=== PATIENT | male | born 1965 | race Caucasian/White ===

== ENCOUNTER 2016-11-28 11:02 | Emergency (ER) | payer OTHER ==
[2016-11-28] MEDS: ASPIRIN 325 MG TABLET PO ONE (11:38)
[2016-11-28 11:39] LABS: BASOPHILS % 0.9 (0.0-1.5); EOSINOPHILS % 1.4 % (0.0-6.8); MEAN CORPUSCULAR HEMOGLOBIN 29.2 pg (28.0-34.0); MEAN CORPUSCULAR VOLUME 87.3 fl (80.0-100.0); MONOCYTES % 3.2 % (0.0-11.0); NEUTROPHILS # 3.4 # k/uL (1.4-7.7)
[2016-11-28 11:51] LABS: eGFR (African) > 60; eGFR (Non-African) > 60
[2016-11-28] MEDS ORDERED: 0.9 % SODIUM CHLORIDE 1,000 ML IV ONE (11:53)
[2016-11-28] MEDS: 0.9 % SODIUM CHLORIDE 1,000 ML IV SCH (11:57)
[2016-11-28] MEDS: KETOROLAC TROMETHAMINE 30 MG/1ML VIAL IVP ONE (12:00)
--- NOTE | 2016-11-28 13:12 | ED Physician Documentation ---
Chest Pain - HISTORIAN Historian: patient - HPI Stated Complaint: chest pain Chief Complaint: Chest Pain Additional Information: hurts to touch left sternal border or take deep breath Onset: other (3-4 weeks) Timing: sudden onset, still present, worse Duration: sudden-onset Last known Well Date: 10/28/16 Last Known Well Time: 00:00 Context: exertion Severity: mild Quality: sharp, stabbing Front/Back of Body, Lg (Color): 1 - chest pain Chest Pain Radiation: no radiation Chest Pain Signs/Symptoms: denies: nausea, vomiting, diaphoresis, cool extremities, dizziness, dyspnea, tachypnea, tachycardia, hypotension, palpitations, weakness Worsened By: deep breaths, exertion Relieved By: rest Further Comments: no - ROS CONST: none MS/LYMPH: none GI/: none EYES/ENT: none SKIN/ENDO: none NEURO/PSYCH: none - PAST HX [place] risk factors: no pertinent history DVT/PE Risk Factors: none TAD/AAA risk factors: none Neuro deficit: none GI disease: none Lung disease: none Surgeries/Procedures: none Allergies/Adverse Reactions: Allergies Allergy/AdvReac Type Severity Reaction Status Date / Time No Known Allergies Allergy Verified 11/28/16 11:12 Home Medications: Ambulatory Orders Medication Instructions Recorded Meloxicam [Mobic] 7.5 mg PO BID #14 mg 11/28/16 - SOCIAL HX Smoking History: non-smoker Alcohol Use: none Drug Use: none - FAMILY HX Family HX: CAD over 55 - VITAL SIGNS Vital Signs: Vital Signs Temp Pulse Resp BP Pulse Ox 98.2 F 45 L 18 148/69 98 11/28/16 11:20 11/28/16 11:33 11/28/16 11:20 11/28/16 11:20 11/28/16 11:31 - REVIEWED ASSESSMENTS Nursing Assessment Reviewed: Yes Vitals Reviewed: Yes Progress - Results/Orders Results/Orders: trop, cbc, cmp, ua, cxr, rib x-ray, ekg ordered - Progress Progress: pt. given asa 325 mg p.o., toradol 30 mg ivp and 1 liter ns iv in er Critical Care Note - Critical Care Note Total Time (mins): 0 ED Results Lab/Radiology - Lab Results Lab Results: Lab Results 11/28/16 11/28/16 11/28/16 11:35 11:35 11:35 WBC 5.30 K/ul K/ul (4.00-12.00) RBC 4.65 M/ul M/ul (3.90-5.20) Hgb 13.6 g/dL g/dL (12.0-18.0) Hct 40.6 % % (37.0-53.0) MCV 87.3 fl fl (80.0-100.0) MCH 29.2 pg pg (28.0-34.0) MCHC 33.4 g/dL g/dL (30.0-36.0) RDW 13.0 % % (11.3-14.3) Plt Count 194 K/mm3 K/mm3 (130-400) Neut % (Auto) 63.5 % % (39.0-79.0) Lymph % (Auto) 29.4 % % (16.0-50.0) [place] % (Auto) 3.2 % % (0.0-11.0) Eos % (Auto) 1.4 % % (0.0-6.8) Baso % (Auto) 0.9 (0.0-1.5) Neut # 3.4 # k/uL # k/uL (1.4-7.7) Lymph # 1.6 # k/uL # k/uL (0.6-4.0) [place] # 0.2 # k/uL # k/uL (0.0-0.9) Eos # 0.1 # k/uL # k/uL (0.0-0.6) Baso # 0.0 # k/uL # k/uL (0.0-0.5) Reactive Lymphs % 1.7 % % (0.0-5.0) Reactive Lymphs # 0.1 # k/uL # k/uL (0.0-0.8) Sodium 143 mmol/L mmol/L (136-145) Potassium 3.9 mmol/L mmol/L (3.5-5.0) Chloride 108 mmol/L mmol/L (98-110) Carbon Dioxide 27 mmol/L mmol/L (20-32) BUN 28 mg/dL H mg/dL (10-26) Creatinine 1.0 mg/dL mg/dL (0.4-1.5) Estimated Creat Clear 87 Est GFR ( Amer) > 60 (60 - ) Est GFR (Non-Af Amer) > 60 (60 - ) Glucose 136 mg/dL H mg/dL (70-99) Calcium 9.8 mg/dL mg/dL (8.5-10.5) Total Bilirubin 0.6 mg/dL mg/dL (0.2-1.2) AST 24 U/L U/L (0-41) ALT 24 U/L U/L (0-45) Alkaline Phosphatase 56 U/L U/L (46-116) Troponin I < 0.03 ng/mL L ng/mL (0.03-0.06) Total Protein 7.6 g/dL g/dL (6.0-8.5) Albumin 4.5 g/dL g/dL (3.0-5.5) - Radiology Radiology Impressions: cxr/rib x-ray neg - Orders Orders: ED Orders Category Date Time Status Continuous EKG monitoring Q30M Care 11/28/16 11:33 Active Continuous Pulse Oximetry Q1H Care 11/28/16 11:[address] IV Lock 1T Care 11/28/16 11:34 Active Remove IV/Saline Lock 1T Care 11/28/16 11:31 Inactive Telemetry NOW Care 11/28/16 11:31 Inactive CHEST 1 VIEW [RAD] Routine Exams 11/28/16 Stop Req RIBS UNILATERAL W/ PA CHEST [RAD] Routine Exams 11/28/16 Ordered CBC/PLATELET/DIFF Routine Lab 11/28/16 11:35 Completed CMP Routine Lab 11/28/16 11:35 Completed TROPONIN I (cTnI) Routine Lab 11/28/16 11:35 Completed URINALYSIS Routine Lab 11/28/16 11:32 Ordered Aspirin Med 11/28/16 11:31 Discontinued 325 mg PO NOW ONE Ketorolac Tromethamine [Toradol] Med 11/28/16 11:53 Once 30 mg IVP NOW ONE NORMAL SALINE @ 1000 MLS/HR ( 1000ml) (BOLUS) Med 11/28/16 12:00 Ordered 0.9 % Sodium Chloride [Normal Saline] 1,000 ml IV .Q1H EKG WITH COMPARISON Routine Ther 11/28/16 Ordered Chest Pain Physical Exam - EXAM General Appearance: no acute distress EENT: eye inspection normal, ENT inspection normal, pharynx normal, MARIPOSA, TM's nml Neck: nml inspection, no carotid bruit Respiratory: no resp. distress, other (reproduceable pain on palpation at left sternal border) CVS: reg. rate & rhythm, no murmur, no gallop, pulses equal Abdomen: soft, no organomegaly, normal bowel sounds, no abdominal bruit, no distension, non-tender Skin: warm/dry, normal color Extremities: non-tender, normal range of motion, no evidence of injury, no edema Neuro: oriented X3, CN's nml as tested, motor nml, sensation nml, mood/affect nml, cognition normal Discharge Clincal Impression: Costochondritis Prescriptions: Meloxicam [Mobic] 7.5 mg PO BID #14 mg Referrals: Primary Doctor,No [Primary Care Provider] - 2 Days Home Medications: Ambulatory Orders Meloxicam [Mobic] 7.5 mg PO BID #14 mg 11/28/16 Comments: pt. discharged with script for meloxicam 7.5 mg 1 p.o. bid x 7 days Condition: Stable Disposition: 01 HOME, SELF-CARE Decision to Admit: NO Decision Time: 13:10
[2016-11-28 13:23] VITALS: BP 122/59
--- NOTE | 2016-11-28 15:55 | Diagnostic Imaging Report ---
[facility] [id number] [facility] [address] [id number] Report Submission Date: Nov 28, 2016 11:59:31 AM CDT Patient Study Name: LYDIA LUONG Date: Nov 28, 2016 11:34:30 AM CDT Modality Type: CR Gender: M Description: CHEST : 67 Institution: [facility] Physician KARMEN PAYAN - ER Chest with left rib series History: PA CHEST W/ LT RIBS, LEFT SIDED CHEST PAIN SINCE THIS MORNING, NO KNOWN INJURY, NON-SMOKER Findings: The heart size is normal. The lungs are clear. There is no pleural effusion or pneumothorax identified. The osseous structures are normal. No evidence of rib fracture. Impression: 1. No acute pulmonary disease. 2. No rib fracture. Electronically signed on Nov 28, 2016 11:59:31 AM CDT by: Derrick KANG
== END 2016-11-28 13:21 | disposition home or self-care (01) ==
LOC: ED 11:02
DX: M94.0 Chondrocostal junction syndrome [Tietze] (principal); R07.9 Chest pain, unspecified
CPT/HCPCS: 71101; 80053; 84484; 85025; 93005; A9270; J1885; J7030; 96361; 96374; 99283; S1016